=== PATIENT | male | born 1925 | race Caucasian/White ===

== ENCOUNTER 2017-05-06 11:05 | Emergency (ER) | payer OTHER, MEDICARE ==
[~2017-05-06 11:05] MED LIST: ACIDOPHILUS1 EACH PO; AMLODIPINE BES2.5 M1 PO; ASPIRIN EC81 M1 PO; ATENOLOL50 M1 PO; AUGMENTIN 500-1 EACH PO; CLARITIN10 M1 PO; COZAAR100 M1 PO; COZAAR50 M1 PO; DYMISTA NASAL S23 GM NASB; FLONASE ALLERG9.9 ML INH; GLUCOSA-CHOND-1 EACH PO; JANUVIA100 M1 PO; JANUVIA50 M1 PO; LEVEMIR FL100 UNIT/1 SC; LEVEMIR FL100 UNIT/1 SQ; LEVEMIR100 UNIT/1 SC; LEVOTHYROXINE75 MCG PO; LOSARTAN POTASS50 M1 PO; LYRICA25 M1 PO; NAMENDA XR28 M1 PO; NEXIUM40 M1 PO; NOVOLOG100 UNIT/2 SC; QUETIAPINE FUMA25 M1 PO; SIMVASTATIN10 M1 PO; TAMSULOSIN HCL0.4 M1 PO; VITAMIN B-121000 MC3 PO
[2017-05-06] MEDS ORDERED: FINASTERIDE5 M1 PO (11:13)
[2017-05-06] MEDS ORDERED: SERTRALINE HCL50 MG PO (11:15)
--- NOTE | 2017-05-06 11:31 | ED AMS/SEIZURE/WEAK/DIZZY ---
History of Present Illness General Chief Complaint: Neuro Symptoms/ Deficit Stated Complaint: BIBA ?STROKE ALERT Source: patient, old records, EMS, W10 Exam Limitations: clinical condition Vital Signs & Intake/Output Vital Signs & Intake/Output Vital Signs Date Time Temp Pulse Resp B/P B/P Pulse O2 O2 Flow FiO2 Mean Ox Delivery Rate 05/06 1246 98.1 60 16 172/82 99 Room Air 05/06 1110 98.1 70 16 164/82 99 Room Air Allergies Coded Allergies: FARHAT Inhibitors (Mild, UNKNOWN 08/26/16) atorvastatin (From LIPITOR) (Mild, UNKNOWN 08/26/16) naproxen (From NAPROSYN) (Mild, "FACE GETS REALLY RED." 08/26/16) Reconcile Medications Amlodipine Besylate 2.5 MG TABLET 1 TAB PO DAILY HIGH BLOOD PRESSURE ( Reported) Aspirin (Ecotrin*) 81 MG TABLET. 1 TAB PO DAILY HEART HEALTH (Reported) Cyanocobalamin (Vitamin B-12) 1,000 MCG TABLET 1 TAB PO DAILY VITAMIN SUPPORT (Reported) Esomeprazole (Nexium) 40 MG CAPSULE. 1 CAP PO DAILY REFLUX (Reported) Finasteride 5 MG TABLET 1 TAB PO DAILY PROSTATE (Reported) Gluc/José Luis-MSM#1/Vit C/Galen/Bor (Wehoagi-Grtqb-TBV Complex Cplt) 1 EACH TABLET 1 TAB PO D HEALTH SUPPLEMENT (Reported) Insulin Aspart (Novolog) 100 UNIT/1 ML VIAL 0 UNITS SC TIDAC/HS blood sugars Meals coverage <150mg/dl - no coverage 151-200mg/dl - 2 units 201-250gm/dl - 4 units 251-300mg/dl - 6 units 301-350mg/dl - 8 units 351-400mg/dl - 10units >400mg/dl - 12 units Bed time scale <25mg/dl - no coverage 250-300mg/dl - 2 units 301-350mg/dl - 3 units 351 - 400 mg/dl - 4 units >400mg/dl - 5 units Insulin Detemir (Levemir) 100 UNIT/1 ML VIAL 12 UNITS SC DAILY blood sugars Levothyroxine Sodium 75 MCG TABLET 1 TAB PO DAILY AC THYROID (Reported) Losartan Potassium (Cozaar) 50 MG TABLET 1 TAB PO DAILY high blood pressure Memantine HCl (Namenda XR) 28 MG CAP.SPR.24 1 CAP PO DAILY MEMORY (Reported) Pregabalin (Lyrica) 25 MG CAPSULE 1 CAP PO BID PAIN CONTROL (Reported) Quetiapine Fumarate 25 MG TABLET 1 TAB PO DAILY DEPRESSION (Reported) Sertraline HCl 50 MG TABLET 1 TAB PO DAILY MENTAL HEALTH (Reported) Simvastatin (Simvastatin*) 10 MG TABLET 1 TAB PO QPM HEART HEALTH (Reported) Sitagliptin Phosphate (Januvia) 50 MG TABLET 50 MG PO DAILY blood sugars Tamsulosin HCl 0.4 MG CAP.ER.24H 1 CAP PO DAILY URINARY HEALTH (Reported) Core Measure Meds Pre-Hospital aspirin Triage Note: BIBA FOR ?MILD EXPRESSIVE APHASIA VS MILD ST MEMORY LOSSK, LAST SEEN NORMAL 28HRS AGO PER EMS. ALERT, ABLE TO ANSWER MANY QUESTIONS, AT TIMES USES INAPPROPRIATE WORDS OR STATES "MY MEMORY IS SHOT." SEEN BY DR COELHO ON ARRIVAL. PT REPORTS NO COMPLAINTS EXCEPT FOR LEFT LOWER LEG PAIN X?1 WEEK. Triage Nurses Notes Reviewed? yes Onset: yesterday Duration: day(s):, constant, continues in ED Timing: recent history Severity: mild No Modifying Factors: none HPI: Patient reportedly normal yesterday and developed confusion and difficulty with word finding. He denies fever chills nausea vomiting diarrhea abdominal pain chest pain shortness breath headache dysuria rash bleeding. He is oriented to year and place person. Past History Medical History Any Pertinent Medical History? see below for history Neurological: TIA, mild cog impairment EENT: NONE Cardiovascular: CAD (status post stent), hypertension, hyperlipidemia, myocardial infarction (age 43), PVD, cardiac stents [place] C/ CARDIAC ARREST Respiratory: NONE Gastrointestinal: GERD Hepatic: NONE Renal: NONE Musculoskeletal: osteoarthritis, spinal stenosis Psychiatric: NONE Endocrine: diabetes, hypothyroidism Blood Disorders: NONE Cancer(s): SKIN CA R EAR History of MRSA: No History of VRE: No History of CDIFF: No Pneumonia Vaccine: 08/09/13 Influenza Vaccine: 08/09/16 Surgical History Surgical History: non-contributory Psychosocial History Who do you live with Patient/Self Services at Home Nursing What is your primary language Thai Family History Hx Contributory? No Review of Systems Review of Systems Constitutional: Reports: no symptoms. EENTM: Reports: no symptoms. Respiratory: Reports: no symptoms. Cardiovascular: Reports: no symptoms. GI: Reports: no symptoms. Genitourinary: Reports: no symptoms. Musculoskeletal: Reports: no symptoms. Skin: Reports: no symptoms. Neurological/Psychological: Reports: see HPI, cognitive dysfunction, confusion. Hematologic/Endocrine: Reports: no symptoms. Immunologic/Allergic: Reports: no symptoms. All Other Systems: Reviewed and Negative Physical Exam Physical Exam General Appearance: well developed/nourished, alert, awake, anxious, comfortable Head: atraumatic, normal appearance Eyes: Bilateral: normal appearance, PERRL, EOMI. Ears, Nose, Throat: normal pharynx, normal ENT inspection Neck: normal inspection, supple, full range of motion, no midline tenderness Respiratory: normal breath sounds, chest non-tender, no respiratory distress, quiet respiration, lungs clear Cardiovascular: regular rate/rhythm, normal peripheral pulses, norml femoral pulses equa Peripheral Pulses: 4+ carotid (R), 4+ carotid (L) Gastrointestinal: normal bowel sounds, soft, non-tender, no organomegaly Back: normal inspection, normal range of motion Extremities: normal range of motion, bony-point tenderness, no ligament instability Neurologic/Psych: no motor/sensory deficits, awake, alert, working foreman II-XII nml as tested, confused to date and time Reflexes: 2+: bicep (R), bicep (L). Skin: intact, normal color, warm/dry Lymphatic: no anterior cervical marybeth Core Measures ACS in differential dx? No CVA/TIA Diagnosis: No Severe Sepsis Present: No Septic Shock Present: No Progress Differential Diagnosis: arrythmia, CVA/stroke, dehydration, drug intoxication, electrolyte imbalance, intracranial Hem., intracranial mass/tumor Plan of Care: Orders Procedure Date/time Status TOTAL TRIODOTHYROXINE 05/06 1143 Active FREE T4 05/06 1143 Active TSH REFLEX 05/06 1124 Active TROPONIN LEVEL 05/06 1124 Active MAGNESIUM 05/06 1124 Active COMPREHENSIVE METABOLIC PANEL 05/06 1124 Active CBC WITHOUT DIFFERENTIAL 05/06 112 Complete Laboratory Tests 05/06/17 1143: Anion Gap 10, Estimated GFR 57 L, BUN/Creatinine Ratio 18.3, Glucose 146 H, Calcium 8.9, Magnesium 2.0, Total Bilirubin 0.8, AST 25, ALT 32, Alkaline Phosphatase 79, Troponin I 0.02, Total Protein 6.2 L, Albumin 4.2, Globulin 2.0 , Albumin/Globulin Ratio 2.1, Free T4 1.13, Total T3 Pending, TSH &T3 &Free T4 Intrp 5.470 H, CBC w Diff NO MAN DIFF REQ, RBC 4.78, MCV 84.0, MCH 28.1, RDW 14.2, MPV 8.8, Gran % 68.4, Lymphocytes % 24.0, Monocytes % 6.6, Eosinophils % 0.2, Basophils % 0.8, Absolute Granulocytes 5.5, Absolute Lymphocytes 1.9, Absolute Monocytes 0.5, Absolute Eosinophils 0, Absolute Basophils 0.1, PUBS MCHC 33.5 Diagnostic Imaging: Viewed by Me: CT Scan. Discussed w/RAD: CT Scan. Radiology Impression: 1. No acute intracranial pathology compared to 06/03/2016. 2. Findings consistent with chronic suaiganz-za-geyayd small vessel ischemic changes in the supratentorial white matter and old lacunar infarctions of the basal ganglia. No acute major vascular territory infarction. Initial ED EKG: normal axis, normal intervals, normal p-waves, normal QRS complex, normal sinus rhythm, no ST T wave changes Departure Departure Time of Disposition: 1337 Disposition: ACUTE REHAB FACILITY Condition: Stable Clinical Impression Primary Impression: Dementia Qualifiers: Dementia type: unspecified type Dementia behavioral disturbance: without behavioral disturbance Qualified Code: F03.90 - Unspecified dementia without behavioral disturbance Secondary Impressions: Cognitive impairment Referrals: RADHA MARTELL,MEGHAN Rondon Departure Forms: Customer Survey General Discharge Information
[2017-05-06 11:48] LABS: ABSOLUTE BASOPHIL COUNT 0.1 /CUMM (0.0-0.2); ABSOLUTE EOSINOPHIL COUNT 0 /CUMM (0.0-0.7); ABSOLUTE GRANULOCYTE CT 5.5 /CUMM (1.4-6.5); ABSOLUTE LYMPH COUNT 1.9 /CUMM (1.2-3.4); ABSOLUTE MONOCYTE COUNT 0.5 /CUMM (0.10-0.60); BASOPHIL % 0.8 % (0.0-2.0); EOSINOPHIL % 0.2 % (0-5); GRANULOCYTE % 68.4 % (42.2-75.2); HEMATOCRIT 40.2 % (42-52); MEAN CORPUSCULAR HGB 28.1 PG (27.0-31.0); MEAN CORPUSCULAR HGB CONC 33.5 G/DL (33.0-37.0); MEAN PLATELET VOLUME 8.8 FL (7.4-10.4); PLATELET COUNT 197 /CUMM (130-400); RBC DISTRIBUTION WIDTH 14.2 % (11.5-14.5); RED BLOOD CELL CT 4.78 /CUMM (4.70-6.10)
--- NOTE | 2017-05-06 12:34 | CT SCAN REPORT ---
EXAMINATION: CT HEAD WITHOUT CONTRAST CLINICAL INFORMATION: Confusion. Word finding difficulty. COMPARISON: 06/03/2016 TECHNIQUE: Contiguous axial imaging was performed from the skull base to vertex without intravenous administration of contrast. DLP: 628 mGy-cm FINDINGS: There is dense atherosclerotic calcification of the cavernous carotid arteries. Again noted is patchy hypoattenuation within supratentorial white matter compatible with microvascular ischemic changes. There are old lacunar infarcts of the basal ganglia. The sampson-white matter differentiation is maintained. No evidence of an acute major vascular territory infarction, acute hemorrhage, extra-axial fluid collection, focal mass effect or midline shift. A small area of subtle hyperattenuation in the right frontal lobe - likely minimal gyral calcification - is unchanged from 06/03/2016 (image 24, series 2). Also, there is chronic thin gyriform calcification of the medial right occipital lobe (images 19-26, series 2). Chronic mild-to moderate cerebral volume loss associated with symmetric prominence of ventricles and sulci. No hydrocephalus. The visualized paranasal sinuses, mastoid air cells and middle ear cavities are well pneumatized. There have been lens extractions from the globes. The temporomandibular joints are unremarkable. IMPRESSION: 1. No acute intracranial pathology compared to 06/03/2016. 2. Findings consistent with chronic rndvyaqx-fh-taopeh small vessel ischemic changes in the supratentorial white matter and old lacunar infarctions of the basal ganglia. No acute major vascular territory infarction.
[2017-05-06 13:40] VITALS: BP 164/83
== END 2017-05-06 14:14 ==
LOC: ERH 11:05
PROVIDERS: Emergency Medicine
DX: F03.90 Unspecified dementia, unspecified severity, without behavioral disturbance, psychotic disturbance, mood disturbance, and anxiety (principal); G31.84 Mild cognitive impairment of uncertain or unknown etiology
CPT/HCPCS: 96374; J0131

== ENCOUNTER 2017-05-07 00:26 | Emergency (ER) | payer OTHER, MEDICARE ==
[~2017-05-07] VITALS: Ht 182.9 cm; Wt 79.4 kg
[~2017-05-07 00:26] MED LIST changes: +FINASTERIDE5 M1 PO; +SERTRALINE HCL50 MG PO
--- NOTE | 2017-05-07 00:32 | ED MVC/FALL/TRAUMA COMPLAINT ---
History of Present Illness General Chief Complaint: General Adult Stated Complaint: BIBA FOR GEN WEAKNESS Source: patient, old records, EMS Exam Limitations: no limitations Vital Signs & Intake/Output Vital Signs & Intake/Output Vital Signs Date Time Temp Pulse Resp B/P B/P Pulse O2 O2 Flow FiO2 Mean Ox Delivery Rate 05/07 0325 53 180/90 05/07 0324 97.1 54 18 232/92 05/07 0300 97.1 54 18 218/92 98 Room Air 05/07 0035 96.8 53 18 161/73 95 Room Air Allergies Coded Allergies: FARHAT Inhibitors (Mild, UNKNOWN 08/26/16) atorvastatin (From LIPITOR) (Mild, UNKNOWN 08/26/16) naproxen (From NAPROSYN) (Mild, "FACE GETS REALLY RED." 08/26/16) Reconcile Medications Amlodipine Besylate 2.5 MG TABLET 1 TAB PO DAILY HIGH BLOOD PRESSURE ( Reported) Aspirin (Ecotrin*) 81 MG TABLET.DR 1 TAB PO DAILY HEART HEALTH (Reported) Cyanocobalamin (Vitamin B-12) 1,000 MCG TABLET 1 TAB PO DAILY VITAMIN SUPPORT (Reported) Esomeprazole (Nexium) 40 MG CAPSULE.DR 1 CAP PO DAILY REFLUX (Reported) Finasteride 5 MG TABLET 1 TAB PO DAILY PROSTATE (Reported) Gluc/José Luis-MSM#1/Vit C/Galen/Bor (Krjqwao-Mwhwo-MVE Complex Cplt) 1 EACH TABLET 1 TAB PO D HEALTH SUPPLEMENT (Reported) Insulin Aspart (Novolog) 100 UNIT/1 ML VIAL 0 UNITS SC TIDAC/HS blood sugars Meals coverage <150mg/dl - no coverage 151-200mg/dl - 2 units 201-250gm/dl - 4 units 251-300mg/dl - 6 units 301-350mg/dl - 8 units 351-400mg/dl - 10units >400mg/dl - 12 units Bed time scale <25mg/dl - no coverage 250-300mg/dl - 2 units 301-350mg/dl - 3 units 351 - 400 mg/dl - 4 units >400mg/dl - 5 units Insulin Detemir (Levemir) 100 UNIT/1 ML VIAL 12 UNITS SC DAILY blood sugars Levothyroxine Sodium 75 MCG TABLET 1 TAB PO DAILY AC THYROID (Reported) Losartan Potassium (Cozaar) 50 MG TABLET 1 TAB PO DAILY high blood pressure Memantine HCl (Namenda XR) 28 MG CAP.SPR.24 1 CAP PO DAILY MEMORY (Reported) Pregabalin (Lyrica) 25 MG CAPSULE 1 CAP PO BID PAIN CONTROL (Reported) Quetiapine Fumarate 25 MG TABLET 1 TAB PO DAILY DEPRESSION (Reported) Sertraline HCl 50 MG TABLET 1 TAB PO DAILY MENTAL HEALTH (Reported) Simvastatin (Simvastatin*) 10 MG TABLET 1 TAB PO QPM HEART HEALTH (Reported) Sitagliptin Phosphate (Januvia) 50 MG TABLET 50 MG PO DAILY blood sugars Tamsulosin HCl 0.4 MG CAP.ER.24H 1 CAP PO DAILY URINARY HEALTH (Reported) Triage Nurses Notes Reviewed? yes Onset: Abrupt Duration: minute(s): Timing: recent history Severity: mild, moderate Injuries/Fall Location: head, lower extremity Method of Injury: fall Loss of Consciousness: no loss of consciousness Modifying Factors: Improves With: rest. Associated Symptoms: LEFT LEG PAIN HPI: 89-year-old gentleman from assisted living facility, presents after a fall. She states that he was getting up to go to the bathroom and then slipped out of his bed. He believes his head hit the end table. He states that he did not lose consciousness. He notes pain in his left knee. He had difficulty ambulating afterwards. He notes that he has been feeling weak with decreased oral intake for the past several days. He was evaluated in the ED for weakness yesterday. He was deemed to be stable and sent home. He notes no chest pain, syncopal symptoms, palpitations, headache. He is otherwise well Past History Travel History Traveled to [place] past 21 day No Medical History Any Pertinent Medical History? see below for history Neurological: TIA, mild cog impairment EENT: cataracts, hearing loss Cardiovascular: CAD (status post stent), hypertension, hyperlipidemia, myocardial infarction (age 43), PVD, cardiac stents [place] C/ CARDIAC ARREST Respiratory: NONE Gastrointestinal: GERD Hepatic: NONE Renal: UROSEPSIS Musculoskeletal: osteoarthritis, spinal stenosis, NEUROPATHY Psychiatric: depression Endocrine: diabetes, hypothyroidism Blood Disorders: NONE Cancer(s): SKIN CA R EAR History of MRSA: No History of VRE: No History of CDIFF: No Pneumonia Vaccine: 08/09/13 Influenza Vaccine: 08/09/16 Surgical History Surgical History: non-contributory Psychosocial History Who do you live with Patient/Self Services at Home Nursing What is your primary language Azerbaijani Family History Hx Contributory? No Review of Systems Review of Systems Constitutional: Reports: no symptoms. Eyes: Reports: no symptoms. Ears, Nose, Throat, Mouth: Reports: no symptoms. Respiratory: Reports: no symptoms. Cardiovascular: Reports: no symptoms. Gastrointestinal/Abdominal: Reports: no symptoms. Genitourinary: Reports: no symptoms. Musculoskeletal: Reports: no symptoms. Skin: Reports: no symptoms. Neurological/Psychological: Reports: no symptoms. All Other Systems: Reviewed and Negative Physical Exam Physical Exam General Appearance: well developed/nourished, mild distress Head: atraumatic, normal appearance Eyes: Bilateral: normal appearance, PERRL, EOMI. Ears, Nose, Throat, Mouth: hearing grossly normal, dRY MUCOSA Neck: normal inspection, supple, full range of motion Respiratory: normal breath sounds, chest non-tender, no respiratory distress, quiet respiration, lungs clear, decreased breath sounds Cardiovascular: regular rate/rhythm Gastrointestinal: normal bowel sounds, soft, non-tender, no organomegaly Back: normal inspection, normal range of motion Extremities: normal range of motion Neurologic/Psych: no motor/sensory deficits, awake, alert, AX[facility] (KNOWS NAME AND "HOSPITAL", NOT DATE) Skin: intact, normal color, warm/dry Core Measures ACS in differential dx? No Severe Sepsis Present: No Septic Shock Present: No Progress Differential Diagnosis: C/T/L spine injury, ICH Plan of Care: Orders Procedure Date/time Status URINALYSIS 05/07 0214 Complete TROPONIN LEVEL 05/07 32 Complete COMPREHENSIVE METABOLIC PANEL 05/07 003 Complete CBC WITHOUT DIFFERENTIAL 05/07 003 Complete Laboratory Tests 05/07/17 0304: Urinalysis LIGHT H, Urine Color YEL, Urine Clarity CLEAR, Urine pH 6.0, Ur Specific [place] 1.020, Urine Protein 100 H, Urine Ketones NEG, Urine Nitrite NEG, Urine Bilirubin NEG, Urine Urobilinogen 0.2, Ur Leukocyte Esterase NEG, Ur Microscopic SEDIMENT EXAMINED, Ur Epithelial Cells RARE, Urine Bacteria RARE H, Urine Mucus FEW, Urine Hemoglobin NEG, Urine Glucose NEG 05/07/17 0142: Anion Gap 11, Estimated GFR 57 L, BUN/Creatinine Ratio 22.5, Glucose 124 H, Calcium 9.3, Total Bilirubin 0.8, AST 24, ALT 32, Alkaline Phosphatase 74, Troponin I 0.04, Total Protein 6.1 L, Albumin 3.8, Globulin 2.3, Albumin/ Globulin Ratio 1.7 05/07/17 0109: CBC w Diff NO MAN DIFF REQ, RBC 4.92, MCV 85.2, MCH 28.1, RDW 14.4, MPV 9.4, Gran % 59.1, Lymphocytes % 29.9, Monocytes % 8.6, Eosinophils % 1.6, Basophils % 0.8, Absolute Granulocytes 4.8, Absolute Lymphocytes 2.4, Absolute Monocytes 0.7 H, Absolute Eosinophils 0.1, Absolute Basophils 0.1, PUBS MCHC 33.0 Diagnostic Imaging: Viewed by Me: Radiology Read, CT Scan. Discussed w/RAD: Radiology Read, CT Scan. Radiology Impression: head ct/cervical ct... subarachnoid hemorrhage... full report below. , ap pelvis... no fx, left knee.. no fx. Comments: PATIENT: SANDRINE DÍAZ PRESENT AGE: 89 PATIENT ACCOUNT NO: [id number] : [birth year] LOCATION: [facility] ORDERING PHYSICIAN: BRYAN MONROE MD SERVICE DATE: 05/07/17 EXAM TYPE: RAD - XRY-AP PELVIS EXAMINATION: XR PELVIS CLINICAL INFORMATION: Fall. Trauma. COMPARISON: No relevant prior imaging. TECHNIQUE: AP view of the pelvis. FINDINGS: The pelvic ring is intact. Both hips are grossly intact with no evidence of acute femoral neck fracture. There is degenerative narrowing of the right hip joint with sclerotic changes primarily along the medial surface of the right femoral head. Sclerotic changes of the acetabular roofs are also noted. Sacroiliac joints are symmetric. No acute sacral fracture. Visualized bowel gas pattern is normal. Atheromatous calcifications are visualized within the femoral vessels. Soft tissues are unremarkable. IMPRESSION: No evidence of acute pelvic or hip fracture. Chronic degenerative changes both hips, greater on the right. DICTATED BY: LEONEL COPELAND MD DATE/TIME DICTATED:05/07/17253 CONSULTANT EDUCATION:EMORY DATE/TIME TRANSCRIBED:05/07/17253 CONFIDENTIAL, DO NOT COPY WITHOUT APPROPRIATE AUTHORIZATION. <Electronically signed in Other Vendor System> SIGNED BY: LEONEL COPELAND MD 05/07 0301 PATIENT: SANDRINE DÍAZ PRESENT AGE: 89 PATIENT ACCOUNT NO: [id number] : [birth year] LOCATION: [facility] ORDERING PHYSICIAN: BRYAN MONROE MD SERVICE DATE: 05/07/17 EXAM TYPE: CAT - CT CERV SPINE WO IV CONTRAST; CT HEAD WO IV CONTRAST EXAMINATION: CT HEAD AND CERVICAL SPINE. CLINICAL INFORMATION: Fall. Head injury. COMPARISON: CT head 06/03/2016. TECHNIQUE: Pit Recorder images were obtained. A CT acquisition of the head and cervical spinal was performed without intravenous administration of contrast. Data was reformatted into multiplanar images at the acquisition workstation. DLP: 1055.94 mGy-cm. FINDINGS: Head: There is a small focus of hyperattenuation along the under surface of the right frontal lobe best illustrated on axial image 22 of 64 series 2. This finding is suspected represent a small focus of acute subarachnoid hemorrhage in the setting of recent trauma. There is no abnormal extra axial collection. Lateral and third ventricles are proportionate to the subarachnoid spaces. Gyriform calcification involving the paramedian right occipital lobe most likely represents a manifestation of cortical laminar necrosis. Numerous foci of ill-defined hypoattenuation visualized throughout the periventricular white matter most likely represent a chronic manifestation of small vessel ischemia. No evidence of acute territorial infarct. Rounded well marginated foci of hypoattenuation are visualized within the basal ganglia that may represent chronic lacunar infarcts versus prominent perivascular spaces. The calvarium and skull base are intact. Mastoid air cells and middle ear cavities are well aerated. Visualized paranasal sinuses are well-aerated. Cervical spine: There is anatomic alignment and position of the vertebral bodies and posterior elements of the cervical spine the sagittal dimension. Vertebral body heights are preserved. There is no evidence of acute fracture. No abnormal prevertebral soft tissue swelling. 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 There is loss of intervertebral disc height with associated sclerotic degenerative endplate changes and disc osteophyte spurring at the levels of C4-C5, C5-C6, C6-C7, and C7-T1. Soft tissues of the neck including the thyroid gland are unremarkable. Heavily calcified at rest plaque involves both carotid bifurcations. Visualized lung apices are clear. IMPRESSION: Small acute subarachnoid hemorrhage along the undersurface of the right anterior frontal lobe. This acute finding is superimposed upon numerous chronic ischemic changes primarily involving the periventricular white matter. 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 No acute cervical spine fracture. There is multilevel degenerative spondylosis of the cervical spine. Grossly no evidence of canal compromise. This critical result was discussed with Bryan Monroe at 05/07/2017 2:30 AM and it was ascertained that the content and urgency of the report was understood at the time of direct communication. DICTATED BY: LEONEL COPELAND MD DATE/TIME DICTATED:05/07/17224 CONSULTANT EDUCATION:EMORY DATE/TIME TRANSCRIBED:05/07/17224 CONFIDENTIAL, DO NOT COPY WITHOUT APPROPRIATE AUTHORIZATION. <Electronically signed in Other Vendor System> SIGNED BY: LEONEL COPELAND MD 05/07 0238 Departure Departure Disposition: STILL A PATIENT Condition: Stable Clinical Impression Primary Impression: Weakness Secondary Impressions: Fall, Hypertension, Subarachnoid hemorrhage Referrals: SHOAIB MARTELL,CATY Jensen (PCP/Family) Departure Forms: Customer Survey General Discharge Information Comments 05/07/17, 2:29am... discussed with [facility]... pt with small subarachnoid hemorrhage... pt to be transferred to [facility] as a trauma. 05/07/17, 2:35... discussed with dr. Murillo ([facility]) who accepts patient. Pt also expressed understanding and signed consent form. I called and left message for Mann Díaz (POA). I also called Rhonda West, listed as next of kin, but her phone did not allow for messages. 05/07/17, 3:29am... Discussed with Mr Mann Díaz who returned call. Pt's bp noted to be elevated. SBP 220's. Labetolol 10mg iv given ... follow up bp 180/90. Medics have arrived to transfer patient to [facility]. Critical Care Note Critical Care Note Critical Care Time: 30-74 min
[2017-05-07 01:53] LABS: ABSOLUTE BASOPHIL COUNT 0.1 /CUMM (0.0-0.2); ABSOLUTE EOSINOPHIL COUNT 0.1 /CUMM (0.0-0.7); ABSOLUTE GRANULOCYTE CT 4.8 /CUMM (1.4-6.5); ABSOLUTE LYMPH COUNT 2.4 /CUMM (1.2-3.4); ABSOLUTE MONOCYTE COUNT 0.7 /CUMM (0.10-0.60); BASOPHIL % 0.8 % (0.0-2.0); EOSINOPHIL % 1.6 % (0-5); GRANULOCYTE % 59.1 % (42.2-75.2); HEMATOCRIT 41.9 % (42-52); MEAN CORPUSCULAR HGB 28.1 PG (27.0-31.0); MEAN CORPUSCULAR VOLUME 85.2 FL (80.0-94.0); MEAN PLATELET VOLUME 9.4 FL (7.4-10.4); PLATELET COUNT 174 /CUMM (130-400); RBC DISTRIBUTION WIDTH 14.4 % (11.5-14.5); RED BLOOD CELL CT 4.92 /CUMM (4.70-6.10); WHITE BLOOD CELL COUNT 8.1 /CUMM (4.8-10.8)
--- NOTE | 2017-05-07 02:38 | CT SCAN REPORT ---
EXAMINATION: CT HEAD AND CERVICAL SPINE. CLINICAL INFORMATION: Fall. Head injury. COMPARISON: CT head 06/03/2016. TECHNIQUE: [employer] images were obtained. A CT acquisition of the head and cervical spinal was performed without intravenous administration of contrast. Data was reformatted into multiplanar images at the acquisition workstation. DLP: 1055.94 mGy-cm. FINDINGS: Head: There is a small focus of hyperattenuation along the under surface of the right frontal lobe best illustrated on axial image 22 of 64 series 2. This finding is suspected represent a small focus of acute subarachnoid hemorrhage in the setting of recent trauma. There is no abnormal extra axial collection. Lateral and third ventricles are proportionate to the subarachnoid spaces. Gyriform calcification involving the paramedian right occipital lobe most likely represents a manifestation of cortical laminar necrosis. Numerous foci of ill-defined hypoattenuation visualized throughout the periventricular white matter most likely represent a chronic manifestation of small vessel ischemia. No evidence of acute territorial infarct. Rounded well marginated foci of hypoattenuation are visualized within the basal ganglia that may represent chronic lacunar infarcts versus prominent perivascular spaces. The calvarium and skull base are intact. Mastoid air cells and middle ear cavities are well aerated. Visualized paranasal sinuses are well-aerated. Cervical spine: There is anatomic alignment and position of the vertebral bodies and posterior elements of the cervical spine the sagittal dimension. Vertebral body heights are preserved. There is no evidence of acute fracture. No abnormal prevertebral soft tissue swelling. 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 There is loss of intervertebral disc height with associated sclerotic degenerative endplate changes and disc osteophyte spurring at the levels of C4-C5, C5-C6, C6-C7, and C7-T1. Soft tissues of the neck including the thyroid gland are unremarkable. Heavily calcified at rest plaque involves both carotid bifurcations. Visualized lung apices are clear. IMPRESSION: Small acute subarachnoid hemorrhage along the undersurface of the right anterior frontal lobe. This acute finding is superimposed upon numerous chronic ischemic changes primarily involving the periventricular white matter. 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 No acute cervical spine fracture. There is multilevel degenerative spondylosis of the cervical spine. Grossly no evidence of canal compromise. This critical result was discussed with Bryan Monroe at 05/07/2017 2:30 AM and it was ascertained that the content and urgency of the report was understood at the time of direct communication.
--- NOTE | 2017-05-07 03:01 | RADIOLOGY REPORT ---
EXAMINATION: XR PELVIS CLINICAL INFORMATION: Fall. Trauma. COMPARISON: No relevant prior imaging. TECHNIQUE: AP view of the pelvis. FINDINGS: The pelvic ring is intact. Both hips are grossly intact with no evidence of acute femoral neck fracture. There is degenerative narrowing of the right hip joint with sclerotic changes primarily along the medial surface of the right femoral head. Sclerotic changes of the acetabular roofs are also noted. Sacroiliac joints are symmetric. No acute sacral fracture. Visualized bowel gas pattern is normal. Atheromatous calcifications are visualized within the femoral vessels. Soft tissues are unremarkable. IMPRESSION: No evidence of acute pelvic or hip fracture. Chronic degenerative changes both hips, greater on the right.
--- NOTE | 2017-05-07 03:03 | RADIOLOGY REPORT ---
EXAMINATION: XR KNEE, LEFT CLINICAL INFORMATION: Fall. Trauma. COMPARISON: No relevant prior imaging. TECHNIQUE: Four views of the left knee. FINDINGS: There is no acute fracture or dislocation. There is asymmetric narrowing of the medial compartment of the left knee. The patellofemoral compartment is grossly intact. No joint effusion. Atheromatous calcification is visualized within the popliteal artery. Soft tissues are otherwise unremarkable. IMPRESSION: No evidence of acute fracture or dislocation of the left knee. There is asymmetric degenerative narrowing of the medial compartment. No joint effusion.
--- NOTE | 2017-05-07 03:05 | RADIOLOGY REPORT ---
EXAMINATION: XR PORTABLE CHEST CLINICAL INFORMATION: Fall. Trauma. COMPARISON: Chest radiograph 08/27/2016. TECHNIQUE: Portable frontal view of the chest was obtained. FINDINGS: There is hilar vascular congestion without evidence of overt interstitial or alveolar edema. No pleural effusion or pneumothorax. The cardiac silhouette is grossly enlarged. Upper mediastinal contours are normal. No acute osseous finding. IMPRESSION: Cardiomegaly and hilar vascular congestion without evidence of overt edema. No evidence of acute fracture.
[2017-05-07 03:25] VITALS: BP 180/90
== END 2017-05-07 03:56 | disposition short-term general hospital (02) ==
LOC: ERH 00:26
PROVIDERS: Pediatrics
DX: S06.6X0A Traumatic subarachnoid hemorrhage without loss of consciousness, initial encounter (principal); R53.1 Weakness; I10 Essential (primary) hypertension; W06.XXXA Fall from bed, initial encounter; Y92.122 Bedroom in nursing home as the place of occurrence of the external cause; Y93.9 Activity, unspecified
CPT/HCPCS: 72170; 73562-LT; 81001; 96374; 99291